=== PATIENT | male | born 2000 | race Caucasian/White ===

== ENCOUNTER 2022-05-15 20:53 | Emergency (ER) | payer OTHER ==
--- OUTSIDE RECORDS SUMMARY | 2022-05-15 20:57 | XMS REPORT | Continuity of Care Document ---
:[address] [facility] t Address [address] [place] [address] Care Team Providers Name Role Phone Wilkes, Mirella Gerri Primary Care Physician KARTIK LIMA Attending Clinician Unavailable Kartik Heredia Attending Clinician Doctor Unassigned, [place] Attending Clinician Unavailable ANABELLA MENDOZA Attending Clinician Unavailable Anabella Mendoza DO Attending Clinician ANABELLA MENDOZA Admitting Clinician Unavailable Payers Payer Name Policy Type Policy Number Effective Date Expiration Date [facility] [id number] 2022 CHARTER 00:00:00 Problems Condition Condition Condition Status Onset Resolution Last Treating Co mments Source Name Details Category Date Date Treatment Clinician Date No known No known Disease Unive rs active active ity of problems problems [place] [facility] Allergies, Adverse Reactions, Alerts Allergy Allergy Status Severity Reaction(s) Onset Inactive Treating Comm ents Source Name Type Date Date Clinician Diphenhy Propensi Active Other - See 2021-05 Pt state s Univers dramine ty to comments 06-16 as a ity of Hcl adverse 00:00: child it [place] reaction 00 caused Medical s his heart Branch to increase to "dangerou s levels", can use topical benadryl DIPHENHY DRUG Active Other-Cmnt 2021-05 Univ ers DRAMINE INGREDI 06-16 ity of HCL 00:00: [place] 00 Medical [facility] Social History Social Habit Start Date Stop Date Quantity Comments Source Exposure to 2022-05-02 2022-05-12 Not sure [facility] SARS-CoV-2 (event) 00:00:00 13:16[facility] At [birth year] [facility] 00:00:00 00:00:00 Medical Branch Smoking Status Start Date Stop Date Source Tobacco smoking consumption [facility] Medical unknown Branch Medications Ordered Filled Start Stop Current Ordering Indication Dosage Frequency Signature Comments Components Source Medication Medication Date Date Medication? Clinician (SIG) Name Name oseltamivir 2021-05- No 75mg 75 mg, Uni vers (TAMIFLU) 07-13 Oral, ONCE ity of capsule 75 20:00: 19:18 NOW, 1 [place] mg 00 :00 dose, On Medical [place] 05/12/22 at 1400, FRANDY benzonatate 2021-05- No 200mg 200 mg, U nivers (TESSALON 07-13 Oral, ONCE ity of PERLES) 20:00: 19:17 NOW, 1 [place] capsule 200 00 :00 dose, On Medi angela mg [facility] 05/12/22 at 1400, FRANDY acetaminoph 2021-05- No 1000mg 1,000 mg, Univers en 07-13 Oral, ity of (TYLENOL) 19:15: 19:18 ONCE, 1 [place] tablet 00 :00 dose, On Medical 1,000 mg [facility] 05/12/22 at 1315, Routine ibuprofen 2021-05- No 800mg 800 mg, Uni vers (IBU) 07-13 Oral, ity of tablet 800 19:15: 19:18 ONCE, 1 [place] as mg 00 :00 dose, On [facility] 05/12/22 at 1315, FRANDY benzonatate 2021-05 Yes [id number] 200mg Take 1 Univers 200 mg 07-13 4100 capsule by ity of capsule 00:00: mouth 3 [place] 00 (three) Medical times Branch daily as needed for Cough. oseltamivir 2021-05- Yes [id number] 75mg Take 1 Univers (TAMIFLU) 07-13 4100 capsule by ity of 75 mg 00:00: 05:59 mouth in [place] capsule 00 :00 the Medical morning Branch and 1 capsule in the evening. Do all this for 5 days. ipratropium 2021-05- No 3mL 3 mL, Univ ers -albuteroL 06-16 Inhalation it y of (DUONEB) 20:30: 19:46 , ONCE [place] 0.5 mg-3 00 :00 NOW, 1 Medical mg(2.5 mg dose, On Branch base)/3 mL Tue nebulizer 04/16/22 solution 3 at 1430, mL Routine Nebulizer & 2021-05 Yes [id number] Use as Univers Compressor 06-16 directed ity o f For Neb 00:00: [place] [facility] inhalationa 2021-05 Yes [id number] Use as Univers l spacing 06-16 directed ity of device 00:00: [place] (BREATHERIT 00 Medical E MDI Branch SPACER) Nebulizer & 2021-05 Yes [id number] Use as Univers Compressor 06-16 directed ity o f For Neb 00:00: [place] [facility] inhalationa 2021-05 Yes [id number] Use as Univers l spacing 06-16 directed ity of device 00:00: [place] (BREATHERIT 00 Medical E MDI Branch SPACER) Nebulizer & 2021-05 Yes [id number] Use as Univers Compressor 06-16 directed ity o f For Neb 00:00: [place] [facility] inhalationa 2021-05 Yes [id number] Use as Univers l spacing 06-16 directed ity of device 00:00: [place] (BREATHERIT 00 Medical E MDI Branch SPACER) albuterol 2021-05- Yes [id number] 2.5mg Inhale 3 Univers 2.5 mg /3 06-16 12-30 mL every 4 ity of mL (0.083 00:00: 05:59 (four) [place] %) 00 :00 hours as Medical nebulizer needed for Bran ch solution Wheezing or Shortness of Breath for up to 30 days. May also nebulize one extra every 6 hours. albuterol 2021-05- Yes [id number] 2.5mg Inhale 3 Univers 2.5 mg /3 06-16 12-30 mL every 4 ity of mL (0.083 00:00: 05:59 (four) [place] %) 00 :00 hours as Medical nebulizer needed for Bran ch solution Wheezing or Shortness of Breath for up to 30 days. May also nebulize one extra every 6 hours. albuterol 2021-05- Yes [id number] 2.5mg Inhale 3 Univers 2.5 mg /3 06-16 12-30 mL every 4 ity of mL (0.083 00:00: 05:59 (four) [place] %) 00 :00 hours as Medical nebulizer needed for Bran ch solution Wheezing or Shortness of Breath for up to 30 days. May also nebulize one extra every 6 hours. Immunizations Ordered Immunization Filled Immunization Date Status Commen ts Source Name Name Jaylin COVID-19 Jaylin COVID-19 2021-12-07 Completed Vaccine Vaccine 00:00:00 Vital Signs Vital Name Observation Time Observation Value Comments Source Systolic blood 2022-05-12 18:53:00 147 mm[Hg] [facility] Diastolic blood 2022-05-12 18:53:00 93 mm[Hg] [facility] Heart rate 2022-05-12 18:53:00 114 /min [facility] Body temperature 2022-05-12 18:53:00 37.78 [facility] Respiratory rate 2022-05-12 18:53:00 20 /min [facility] Body weight 2022-05-12 18:53:00 108.863 kg [facility] BMI 2022-05-12 18:53:00 32.55 kg/m2 [facility] Oxygen saturation in 2022-05-12 18:53:00 96 /min Mica of Arterial blood by [facility] Pulse oximetry Branch Systolic blood 2022-04-16 21:00:00 124 mm[Hg] Univer sity of [facility] Diastolic blood 2022-04-16 21:00:00 89 mm[Hg] Unive rsity [facility] Heart rate 2022-04-16 21:00:00 85 /min [facility] Body temperature 2022-04-16 21:00:00 36.22 Deja [facility] Respiratory rate 2022-04-16 21:00:00 21 /min [facility] Oxygen saturation in 2022-04-16 21:00:00 95 /min University of Arterial blood by [facility] Pulse oximetry Branch Body height 2022-04-16 19:22:00 182.9 cm [facility] Body weight 2022-04-16 19:22:00 108.863 kg [facility] BMI 2022-04-16 19:22:00 32.55 kg/m2 [facility] Procedures Procedure Date / Time Performed Performing Clinician Sourc e NOTICE OF PRIVACY 2022-05-12 18:39:55 Doctor Unassigned, No [facility] Name Medical Branch CONSENT/REFUSAL FOR 2022-05-12 18:39:41 Doctor Unassigned, No Un [facility] DIAGNOSIS AND Name [facility] TREATMENT RAPID INFLUENZA A/B 2022-04-16 19:34:00 Anabella Mendoza [facility] XR CHEST 1 VW 2022-04-16 19:31:44 Anabella Mendoza o f [facility] Encounters Start End Encounter Admission Attending Care Care Encounter Source Date/Time Date/Time Type Type Clinicians Facility Department ID 2022-05-12 2022-05-12 Emergency X JANIE [facility] ERT [id number] Univers 12:53:00 13:23:00 KARTIK tran [facility] 2022-05-12 2022-05-12 Ernie Lima [facility] [id number] Univers 12:53:00 13:23:00 Kartik NAIR [id number] i ty [facility] [id number] [facility] [id number] [facility] 084 Branch 2022-05-12 2022-05-12 Orders Doctor KIM [id number] Univers 00:00:00 00:00:00 Only Unassigned, OLIVA [id number] ity of [place] [facility] [id number] [place] [address] [id number] [facility] 009 Branch 2022-04-16 2022-04-16 Emergency X LIZETTE MENDZOA ERT [id number] Univers 13:12:00 15:42:00 ANABELLA tran [facility] 2022-04-16 2022-04-16 Emergency Singer [facility] [id number] Univers 13:12:00 15:42:00 Anabella NAIR [id number] i ty of [place] [id number] [facility] [id number] [place] [id number] Branch 2021-12-07 2021-12-07 Outpatient GCCOVIDV GCCOVIDV [id number] [facility] 00:00:00 00:00:00 V Results This patient has no known results.
[2022-05-15 22:54] LABS: SARS-COV-2 RT PCR NEGATIVE (NEGATIVE)
--- NOTE | 2022-05-15 23:27 | ER ---
[facility]'s [facility] Name: Fortino Rios Age: 21 yrs Sex: Male : 2000 Arrival Date: 05/15/2022 Time: 21:05 Bed IW1 Private MD: Diagnosis: Influenza due to identified novel influenza A virus;Unspecified asthma, uncomplicated Presentation: 05/15 21:45 Chief complaint: Patient states: "I know I have the flu but when I take a deep breath I as6 get a sharp chest. Coronavirus screen: Client presents with at least one sign or symptom that may indicate coronavirus-19. Ebola Screen: No symptoms or risks identified at this time. Initial Sepsis Screen: Does the patient meet any 2 criteria? No. Patient's initial sepsis screen is negative. Does the patient have a suspected source of infection? No. Patient's initial sepsis screen is negative. Risk Assessment: Do you want to hurt yourself or someone else? Patient reports no desire to harm self or others. Onset of symptoms was May 12, 2022. 21:45 Method Of Arrival: Ambulatory as6 21:45 Acuity: VLADIMIR 3 bb Triage Assessment: 21:51 General: Appears in no apparent distress. uncomfortable, Behavior is cooperative. Pain: as6 Complains of pain in chest Pain currently is 7 out of 10 on a pain scale. Neuro: Level of Consciousness is awake, alert, obeys commands, Oriented to person, place, time, situation. Cardiovascular: Capillary refill < 3 seconds Patient's skin is warm and dry. Respiratory: Respiratory effort is labored, Respiratory pattern is regular. GI: No signs and/or symptoms were reported involving the gastrointestinal system. Derm: Skin is pink, warm \\T\\ dry. Musculoskeletal: Circulation, motion, and sensation intact. Historical: - Allergies: 21:51 Benadryl; as6 21:51 Latex, Natural Rubber; as6 - Home Meds: 21:51 None [Active]; as6 - PMHx: 21:51 Asthma; as6 - PSHx: 21:51 hand surgery; as6 - Immunization history:: Client reports receiving the 1st dose of the Covid vaccine, Moderna. - Social history:: Smoking status: Patient reports the use of cigarette tobacco products. Assessment: 23:33 Reassessment: pt is alert and oriented x 4, verbalized understanding of and agrees to bb plan of care discharge instructions given pt ambulated with steady gait to exit. Vital Signs: 21:45 BP 139 / 99; Pulse 95; Resp 18 S; Temp 98(O); Pulse Ox 97% on R/A; Weight 108.86 kg as6 (R); Height 6 ft. 0 in. (182.88 cm) (R); Pain 7/10; 21:45 Body Mass Index 32.55 (108.86 kg, 182.88 cm) as6 ED Course: 21:05 Patient arrived in ED. es 21:12 Fidelia Abel FNP-C is PHCP. snw 21:12 Keith Purcell MD is Attending Physician. snw 21:51 Triage completed. as6 21:51 Arm band placed on Patient placed in an exam room, in waiting room. as6 22:51 Chest Pa And Lat (2 Views) XRAY In Process Unspecified. EDMS Administered Medications: No medications were administered Outcome: 23:26 Discharge ordered by . snw 23:36 Discharged to home ambulatory. bb 23:36 Condition: stable 23:36 Discharge instructions given to patient, Instructed on discharge instructions, follow up and referral plans. medication usage, Demonstrated understanding of instructions, follow-up care, medications, Prescriptions given X 3. 23:36 Patient left the ED. bb Signatures: Dispatcher [employer] EDMS Fidelia Abel FNP-C CROSSING SUPERVISOR-Csnw Geraldine Enrique Marilyn Torres RN RN bb Gregory Rivera RN RN as6 Corrections: (The following items were deleted from the chart) 21:53 21:51 Allergies: No Known Allergies; as6 as6 22:00 21:45 Acuity: VLADIMIR 4 as6 bb
--- NOTE | 2022-05-15 23:27 | EDPHYS ---
Physician Documentation [facility] Name: Fortino Rios Age: 21 yrs Sex: Male : 2000 Arrival Date: 05/15/2022 Time: 21:05 Bed IW1 Private MD: ED Physician Keith Purcell HPI: 05/16 00:48 This 21 yrs old Male presents to ER via Ambulatory with complaints of Flu Symptoms, snw CHEST JAQUEZ WHEN DEEP BREATH IS TAKEN. 00:48 The patient or guardian reports cough, flu symptoms, arthralgias, low-grade fever, snw myalgias, no appetite. Onset: The symptoms/episode began/occurred acutely. Modifying factors: The symptoms are alleviated by nothing. the symptoms are aggravated by cold environment, coughing. Associated signs and symptoms: Pertinent positives: chest pain, with cough. Severity of symptoms: At their worst the symptoms were moderate. The patient has not experienced similar symptoms in the past, but family has similar symptoms, daughter, son. It is unknown whether or not the patient has recently seen a physician. Historical: - Allergies: 05/15 21:51 Benadryl; as6 21:51 Latex, Natural Rubber; as6 - Home Meds: 21:51 None [Active]; as6 - PMHx: 21:51 Asthma; as6 - PSHx: 21:51 hand surgery; as6 - Immunization history:: Client reports receiving the 1st dose of the Covid vaccine, Moderna. - Social history:: Smoking status: Patient reports the use of cigarette tobacco products. ROS: 05/16 00:47 Eyes: Negative for injury, pain, redness, and discharge, ENT: Negative for injury, snw pain, and discharge, Neck: Negative for injury, pain, and swelling, Cardiovascular: Negative for chest pain, palpitations, and edema. Abdomen/GI: Negative for abdominal pain, nausea, vomiting, diarrhea, and constipation, Back: Negative for injury and pain, : Negative for injury, bleeding, discharge, and swelling, MS/Extremity: Negative for injury and deformity, Skin: Negative for injury, rash, and discoloration, Neuro: Negative for headache, weakness, numbness, tingling, and seizure, Psych: Negative for depression, anxiety, suicide ideation, homicidal ideation, and hallucinations. Constitutional: Positive for body aches, fatigue, fever, malaise, poor PO intake. Respiratory: Positive for cough, shortness of breath. Exam: 00:44 Constitutional: This is a well developed, well nourished patient who is awake, alert, snw and in no acute distress. Head/Face: Normocephalic, atraumatic. Eyes: Pupils equal round and reactive to light, extra-ocular motions intact. Lids and lashes normal. Conjunctiva and sclera are non-icteric and not injected. Cornea within normal limits. Periorbital areas with no swelling, redness, or edema. ENT: Nares patent. No nasal discharge, no septal abnormalities noted. Tympanic membranes are normal and external auditory canals are clear. Oropharynx with no redness, swelling, or masses, exudates, or evidence of obstruction, uvula midline. Mucous membranes moist. Neck: Trachea midline, no thyromegaly or masses palpated, and no cervical lymphadenopathy. Supple, full range of motion without nuchal rigidity, or vertebral point tenderness. No Meningismus. Chest/axilla: Normal chest wall appearance and motion. Nontender with no deformity. No lesions are appreciated. Cardiovascular: Regular rate and rhythm with a normal S1 and S2. No gallops, murmurs, or rubs. Normal PMI, no JVD. No pulse deficits. 00:44 Abdomen/GI: Soft, non-tender, with normal bowel sounds. No distension or tympany. No guarding or rebound. No evidence of tenderness throughout. Back: No spinal tenderness. No costovertebral tenderness. Full range of motion. Skin: Warm, dry with normal turgor. Normal color with no rashes, no lesions, and no evidence of cellulitis. MS/ Extremity: Pulses equal, no cyanosis. Neurovascular intact. Full, normal range of motion. Neuro: Awake and alert, GCS 15, oriented to person, place, time, and situation. Cranial nerves II-XII grossly intact. Motor strength 5/5 in all extremities. Sensory grossly intact. Cerebellar exam normal. Normal gait. Psych: Awake, alert, with orientation to person, place and time. Behavior, mood, and affect are within normal limits. 00:44 Respiratory: the patient does not display signs of respiratory distress, Respirations: shallow respirations, tachypnea, that is mild, Breath sounds: bronchial sounds, bronchitic cough. Vital Signs: 05/15 21:45 BP 139 / 99; Pulse 95; Resp 18 S; Temp 98(O); Pulse Ox 97% on R/A; Weight 108.86 kg as6 (R); Height 6 ft. 0 in. (182.88 cm) (R); Pain 7/10; 21:45 Body Mass Index 32.55 (108.86 kg, 182.88 cm) as6 MDM: 22:25 Patient medically screened. snw 05/16 00:45 Data reviewed: vital signs, nurses notes. Data interpreted: Pulse oximetry: on room air snw is 97 %. Interpretation: normal. Counseling: I had a detailed discussion with the patient and/or guardian regarding: the historical points, exam findings, and any diagnostic results supporting the discharge/admit diagnosis, lab results, radiology results, the need for outpatient follow up, to return to the emergency department if symptoms worsen or persist or if there are any questions or concerns that arise at home. Special discussion: I have referred the patient to see his PCP for further evaluation of high blood pressure. Based on the history and exam findings, there is no indication for further emergent testing or inpatient evaluation. I discussed with the patient/guardian the need to see the primary care provider for further evaluation of the symptoms. 05/15 21:33 Order name: COVID-19/FLU A+B; Complete Time: 23:02 snw 05/15 21:59 Order name: Chest Pa And Lat (2 Views) XRAY snw Administered Medications: No medications were administered Disposition Summary: 05/15/22 23:26 Discharge Ordered Location: Home snw Condition: Stable snw Diagnosis - Influenza due to identified novel influenza A virus snw - Unspecified asthma, uncomplicated snw Followup: snw - With: Emergency Department - When: As needed - Reason: Worsening of condition Followup: snw - With: Private Physician - When: 5 - 6 days - Reason: Recheck today's complaints, Continuance of care, Re-evaluation by your physician Discharge Instructions: - Discharge Summary Sheet snw - Influenza, Adult snw - Form - Blood Pressure Record Sheet snw Forms: - Medication Reconciliation Form snw - Thank You Letter snw - Antibiotic Education snw - Prescription Opioid Use snw Prescriptions: - Singulair 10 mg Oral Tablet - take 1 tablet by ORAL route At bedtime; 60 tablet; Refills: 0, Product snw Selection Permitted - Pepcid 20 mg Oral Tablet - take 1 tablet by ORAL route once daily; 20 tablet; Refills: 0, Product snw Selection Permitted - promethazine 25 mg Oral Tablet - take 1 tablet by ORAL route every 6 hours As needed; 20 tablet; Refills: 0, snw Product Selection Permitted Signatures: Dispatcher [employer] Fidelia Bhardwaj, EMRE MAE-Gregory Souza RN RN as6 Corrections: (The following items were deleted from the chart) 05/15 21:53 21:51 Allergies: No Known Allergies; as6 as6
[2022-05-15 23:59] VITALS: BP 139/99; TEMP 98; O2SAT 97
--- NOTE | 2022-05-16 11:46 | RAD REPORT ---
EXAM DESCRIPTION: RAD - Chest Pa And Lat (2 Views) - 05/15/2022 10:49 pm CLINICAL HISTORY: 21-year-old male with cough. TECHNIQUE: Two-view, PA and lateral projections of the chest were obtained. COMPARISON: None. FINDINGS: Unremarkable cardiac and mediastinal silhouette. Heart size is normal. Lungs are clear without focal opacity, pneumothorax or pleural effusions. The visualized bones are within normal limits. IMPRESSION: No acute cardiopulmonary abnormalities. Electronically signed by: Chelsea Chun MD 05/15/2022 11:20 PM CNC WOOD LATHE OPERATOR Due to temporary technical issues with the PACS/Fluency reporting system, reports are being signed by the in house radiologists without review as a courtesy to insure prompt reporting. The interpreting radiologist is fully responsible for the content of the report.
== END 2022-05-15 23:36 | disposition home or self-care (01) ==
LOC: ER 20:53
DX: J10.1 Influenza due to other identified influenza virus with other respiratory manifestations (principal); J45.909 Unspecified asthma, uncomplicated; Z20.822 Contact with and (suspected) exposure to COVID-19; Z72.0 Tobacco use; Z88.8 Allergy status to other drugs, medicaments and biological substances; Z91.040 Latex allergy status; Z91.048 Other nonmedicinal substance allergy status
CPT/HCPCS: 0240U; 71046